=== PATIENT | female | born 1955 | race Caucasian/White ===

== ENCOUNTER 2019-01-21 08:10 | Outpatient (REF) | payer OTHER, SELFPAY ==
[2019-01-21 21:53] LABS: Anion Gap 8.6 mmol/L (3-11); BUN 25 mg/dL (7-18); CO2 29.4 mmol/L (21.0-32.0); CREATININE 0.97 mg/dL (0.55-1.02); Calcium 8.6 mg/dL (8.5-10.1); Calculated LDL 129; Chloride 105 mmol/L (98-107); Cholesterol 202 mg/dL (50-200); Estimated GFR 58.19 (mL/min/1.73m2); Glucose 102 mg/dL (70-100); HDL Cholesterol 51 mg/dL (40-60); Potassium 4.3 mmol/L (3.5-5.1); Sodium 143 mmol/L (136-145); Triglyceride 112 mg/dL (30-150)
== END 2019-01-21 08:30 ==
LOC: NCHCN 08:10
PROVIDERS: Visit Provider Family Medicine
DX: Z00.00 Encounter for general adult medical examination without abnormal findings (principal); I10 Essential (primary) hypertension
CPT/HCPCS: 80048; 80061; 83721

== ENCOUNTER 2019-09-29 12:24 | Outpatient (REF) | payer OTHER, SELFPAY ==
[2019-09-29 21:56] LABS: ALT 22 U/L (14-59); Calculated LDL 55 mg/dL (<100); Cholesterol 144 mg/dL (<200); HDL Cholesterol 31 mg/dL (40-60); Triglyceride 292 mg/dL (<150)
== END 2019-09-29 12:44 ==
LOC: NCHCN 12:24
PROVIDERS: Visit Provider Family Medicine
DX: I77.810 Thoracic aortic ectasia (principal)
CPT/HCPCS: 80061; 84460

== ENCOUNTER 2020-01-20 12:33 | Outpatient (REF) | payer OTHER, SELFPAY ==
[2020-01-21 23:59] LABS: COVID-19 RT-PCR Result NEGATIVE (Negative)
== END 2020-01-20 12:53 ==
LOC: NCHCN 12:33
PROVIDERS: Visit Provider Family Medicine
DX: Z20.828 Contact with and (suspected) exposure to other viral communicable diseases (principal)
CPT/HCPCS: U0003

== ENCOUNTER 2020-06-29 14:12 | Outpatient (REF) | payer OTHER, SELFPAY ==
[2020-07-03 11:32] LABS: SARS-CoV-2 RNA Source Nasal/Nares
[2020-07-03 11:34] LABS: SARS-CoV-2 RNA Not Detected (NotDetected)
== END 2020-06-29 14:32 ==
LOC: NCHCN 14:12
PROVIDERS: Visit Provider Nurse Practitioner Family
DX: Z11.59 Encounter for screening for other viral diseases (principal)
CPT/HCPCS: U0003

== ENCOUNTER 2020-10-24 16:08 | Outpatient (REF) | payer OTHER, SELFPAY ==
[2020-10-24 22:12] LABS: Abs Immature Grans 0.08 10^3/uL (0.0-0.06); Absolute Basophil Count 0.04 10^3/uL (0.0-0.2); Absolute Eosinophil Count 0.06 10^3/uL (0.0-0.7); Absolute Lymphocyte Count 2.63 10^3/uL (1.2-3.4); Absolute Monocyte Count 0.54 10^3/uL (0.1-0.8); Absolute Neutrophil Count 5.38 10^3/uL (1.2-6.7); Basophils % 0.5; Eosinophils % 0.7; HCT 38.3 % (36.0-46.0); HGB 12.5 g/dL (11.2-15.7); Immature Grans % 0.9; Lymphocytes % 30.1; MCH 30.5 pg (27.0-33.0); MCHC 32.6 % (32.0-36.0); MCV 93.4 fL (80-95); MPV 11.1 fL (8.0-11.0); Monocytes % 6.2; Neutrophils % 61.6; Nucleated RBC 0 %; Platelet Count 308 10^3/uL (130-400); RDW-SD 44.9 fL; WBC 8.73 10^3/uL (4.4-10.8)
[2020-10-24 22:25] LABS: Hemoglobin A1C 6.3 % (<5.7)
[2020-10-24 22:45] LABS: BUN 22 mg/dL (7-18); CREATININE 0.9 mg/dL (0.55-1.02); Calcium 8.9 mg/dL (8.5-10.1); Calculated LDL 74 mg/dL (<100); Chloride 103 mmol/L (98-107); Cholesterol 172 mg/dL (<200); Glucose 119 mg/dL (74-106); HDL Cholesterol 77 mg/dL (40-60); Potassium 3.9 mmol/L (3.5-5.1); Sodium 142 mmol/L (136-145); TSH 1.54 uIU/mL (0.36-3.74); Triglyceride 107 mg/dL (<150)
== END 2020-10-24 16:09 | disposition home or self-care (01) ==
LOC: NCHCN 16:08
PROVIDERS: PCP Nurse Practitioner Family; Visit Provider Nurse Practitioner Family
DX: I10 Essential (primary) hypertension (principal); E78.5 Hyperlipidemia, unspecified; R53.83 Other fatigue; Z13.1 Encounter for screening for diabetes mellitus
CPT/HCPCS: 80048; 80061; 83036; 84443; 85025

== ENCOUNTER 2022-04-24 10:49 | Outpatient (REF) | payer OTHER, SELFPAY ==
[2022-04-24 15:58] LABS: Hemoglobin A1C 6.2 % (<5.7)
[2022-04-24 16:10] LABS: ALT 29 U/L (14-59); Anion Gap 10.4 mmol/L (3-11); BUN 26 mg/dL (7-18); CO2 27.6 mmol/L (21.0-32.0); Calcium 8.6 mg/dL (8.5-10.1); Calculated LDL 92 mg/dL (<100); Chloride 104 mmol/L (98-107); Cholesterol 174 mg/dL (<200); Estimated GFR 62.13 (mL/min/1.73m2); Glucose 106 mg/dL (74-106); HDL Cholesterol 59 mg/dL (40-60); Potassium 4.2 mmol/L (3.5-5.1); Sodium 142 mmol/L (136-145); Triglyceride 116 mg/dL (<150)
== END 2022-04-24 10:50 | disposition home or self-care (01) ==
LOC: NCHCN 10:49
PROVIDERS: PCP Nurse Practitioner Family; Visit Provider Family Medicine
DX: I10 Essential (primary) hypertension (principal); R73.03 Prediabetes; E78.5 Hyperlipidemia, unspecified
CPT/HCPCS: 80048; 80061; 83036; 84460

== ENCOUNTER 2023-04-16 14:41 | Outpatient (REF) | payer MEDICARE, SELFPAY ==
[2023-04-16 22:17] LABS: BUN 27 mg/dL (7-18); Calcium 9.1 mg/dL (8.5-10.1); Calculated LDL 77 mg/dL (<100); Chloride 104 mmol/L (98-107); Cholesterol 181 mg/dL (<200); Estimated GFR 61.75 (mL/min/1.73m2); Glucose 135 mg/dL (74-106); HDL Cholesterol 73 mg/dL (40-60); Potassium 3.5 mmol/L (3.5-5.1); Sodium 139 mmol/L (136-145); Triglyceride 157 mg/dL (<150)
[2023-04-16 22:32] LABS: Hemoglobin A1C 5.9 % (<5.7)
== END 2023-04-16 14:42 | disposition home or self-care (01) ==
LOC: NCHCN 14:41
PROVIDERS: PCP Nurse Practitioner Family; Visit Provider Family Medicine
DX: I10 Essential (primary) hypertension (principal); R73.03 Prediabetes; E78.1 Pure hyperglyceridemia
CPT/HCPCS: 80048; 80061; 83036

== ENCOUNTER 2024-03-15 11:27 | Outpatient (REF) | payer MEDICARE, SELFPAY ==
--- OUTSIDE RECORDS SUMMARY | 2024-03-15 11:35 | XMS_ITS ---
Author Organization Unknown Address [address] [place] [phone] Phone Care Team Providers Care Bobcat Driver/Labor Name Role Phone JEAN CLAUDE Lomeli Attending Unavailable NORMAN Duke Primary Unavailable Social History Type Status Start Date End Date Code Code Syst em Smoking History Never smoker (Never Smoked) 421794481 SNOMED CT Sex Female Medications Medication Start Date End Date Route Frequency Dose Code Code System Medication Instructions Home Meds UNKNOWN MEDICATIONS 12/13/2018 Unknown ORAL DAILY 1 RxNorm TAKE 1 ORAL DAILY Hospital Discharge Instructions Should you have any questions prior to discharge, please contact a member of your healthcare team. If you have left the hospital and have any questions, please contact your primary care physician. Reason For Referral No Data Found Allergies and Adverse Reactions Allergy Substance Reaction Severity Start Date Concern Status Code Code System AMLODIPINE Moderate Active 33122 RxNorm AUGMENTIN Diarrhea (SNOMED-CT: 05706777), Dizziness (SNOMED-CT: 862626022), Vomiting (SNOMED-CT: 370201940) Active 878826 RxNorm Plan of Treatment MM SCREEN BILAT 05/31/2022 Encounters Encounter Diagnosis Start Date Code Code Sys tem Pain in upper limb 01/16/2022 076568511 SNOMED-CT Personal Care Team Section Performer Name Performer Role Active Date Inactive Da te
--- OUTSIDE RECORDS SUMMARY | 2024-03-15 11:35 | XMS_ITS ---
Author Organization Unknown Address [address] [place] [address] [phone] Phone Care Team Providers Care Manager Environmental Services Name Role Phone ROOMET DAVID Attending Unavailable Social History Type Status Start Date End Date Code Code Syst em Smoking History Never smoker (Never Smoked) 242996163 SNOMED CT Sex Female Medications Medication Start [...] Status Code Code System AMLODIPINE Moderate Active 15600 RxNorm AUGMENTIN Diarrhea (SNOMED-CT: 44533474), Dizziness (SNOMED-CT: 960231503), Vomiting (SNOMED-CT: 467070412) Active 103411 RxNorm Plan of Treatment MM SCREEN BILAT 05/31/2022 Encounters Encounter Diagnosis Start Date Code Code Sys tem Pain in right forearm 01/01/2022 SNOMED -CT Personal Care Team Section Performer Name Performer Role Active Date Inactive Da te
--- OUTSIDE RECORDS SUMMARY | 2024-03-15 11:36 | XMS_ITS ---
Author Organization Unknown Address [address] [place] [address] [phone] Phone Care Team Providers Care Restoration Ecologist Name Role Phone NORMAN Duek Attending Unavailable Results MM SCREENING BILAT MAMMO W T PJ Antonia CAD - Completed: 05/31/2022 09:18 LOINC: RADIOLOGY [place], [place] [address] PACS FOOD SERVICE REPORT Patient Name: JENNIFER GARDNER MRN: Sex: : Age: [id number] F [id number] Account: Accession: Admit: StayType: [id number] 05/31/2022 O/P Ordered: Order ID: Submitted: Ordering Provider: 05/31/2022 08:46 [id number] [facility] RODDY [place] Completed: Technologist: Resulted: 05/31/2022 09:18 DA 05/31/2022 09:22 Study Description: MM SCREENING BILAT MAMMO W TIA W CAD Reason For Study: SCREENING FINDINGS Exam was performed with 2D and tomosynthesis and was interpreted with CAD lesion detection performed. The breasts are of moderate density with fairly symmetrical distribution of fibroglandular tissue. No dominant mass or clumped microcalcification is identified in either breast. The current examination is compared with previous examinations including August 2019, multiple areas of nodularity seen bilaterally appears stable. No new abnormality seen. IMPRESSION [No specific evidence of malignancy at this time. Routine screening examinations are suggested at yearly intervals in this age group according to the ACS ACR guidelines.] [BI-RADS Category 1: Negative] [BI_RADS Density Category B: Scattered areas of fibroglandular density] Report Digitally Signed by Az Ruiz on 05/31/2022 09:22 AM EDT Social History Type Status Start Date End Date Code Code Syst em Smoking History Never smoker (Never Smoked) 782125706 SNOMED CT Sex Female Medications Medication Start [...] Status Code Code System AMLODIPINE Moderate Active 33684 RxNorm AUGMENTIN Diarrhea (SNOMED-CT: 62928244), Dizziness (SNOMED-CT: 066442085), Vomiting (SNOMED-CT: 521794663) Active 197787 RxNorm Plan of Treatment MM SCREEN BILAT 05/31/2022 Encounters Encounter Diagnosis Start Date Code Code Sys tem Encounter for screening mamm ogram for malignant neoplasm of breast 05/31/2022 SNOMED-CT Personal Care Team Section Performer Name Performer Role Active Date Inactive Da te
--- OUTSIDE RECORDS SUMMARY | 2024-03-15 11:36 | XMS_ITS | Clinical Summary ---
Author Organization [facility] [place] [address] Care Team Providers Care Unit Secy Name Role Phone Unknown Primary Care Provider Unavailabl e Social History Tobacco Use Types Packs/Day Years Used Date Smoking Tobacco: Never Assessed Sex and Gender Information Value Date Recorded Sex Assigned at Not on file Gender Identity Not on file Sexual Orientation Not on file Plan of Treatment Health Maintenance Due Date Last Done Comments CT Colonography 1955 Colonoscopy 1955 Colorectal Cancer Screening 1955 FIT DNA 1955 FIT 1955 Sigmoidoscopy (10 year) with FIT yearly 1955 Sigmoidoscopy 1955 Hepatitis C Screening 02/25/1974 Tdap adult 02/25/1975 Tetanus vaccine 02/25/1975 Breast Cancer Share Decision Needed 1996 Breast Cancer screening 1996 Zoster vaccine (1 of 2) 02/25/2006 Advance Directive 02/25/2011 Bone Density Scan 02/25/2021 Pneumoccocal Vaccine: 65+ (1 of 1 - PCV) 02/25/2021 Covid-19 Vaccine (1 - 2022-24 season) 2023 Influenza (Flu) vaccine (1 o f 1 - Influenza standard series) 04/11/2024 Care Teams Unit Secy Relationship Specialty Start Date End Date Unknown None PCP - General 07/22/18
--- OUTSIDE RECORDS SUMMARY | 2024-03-15 11:36 | XMS_ITS | Encounter Summary ---
Author Organization [facility] Address [facility] [place] [address] Care Team Providers Care Pharmacy Sales Representative Name Role Phone Unknown Primary Care Provider Unavailabl e Encounter Details Date Type Department Care Team (Latest Contact Info) Description 06/29/2020 11:18 PM EST - 06/29/2020 11:59 PM EST Hospital En[place] [phone] Discharge Disposition: Home Social History Tobacco Use Types Packs/Day Years Used Date Smoking Tobacco: Never Assessed Sex and Gender Information Value Date Recorded Sex Assigned at Not on file Gender Identity Not on file Sexual Orientation Not on file documented as of this encounter Plan of Treatment Not on file documented as of this encounter Procedures Procedure Name Priority Date/Time Associated Diagnosis Comments COVID-19 PCR Routine 06/29/2020 2:00 PM EST documented in this encounter Results * COVID-19 PCR (06/29/2020 2:00 PM EST) SARS-CoV-2 RNA Not Detected Not Detected [facility] Comment: This result should be interpreted in combination with the clinical observations, patient history and epidemiological information in making a final diagnosis. For testing of asymptomatic individuals, assay performance characteristics and clinical utility have not been evaluated. Testing for SARS-CoV-2 (Severe acute respiratory syndrome coronavirus 2, formerly known as 2019 novel coronavirus or 2019-nCoV) to aid in the diagnosis of COVID-19 is performed using the [employer] m SARS-CoV-2 Assay as authorized by the FDA Emergency Use Authorization (EUA). This EUA assay is intended for In-vitro Diagnostic (IVD) use with respiratory specimens such as nasopharyngeal swabs collected from individuals during the acute phase of infection. This assay is performed based on the instructions for use provided by [employer] and additional guidance provided by CDC and FDA. Testing is performed in the [facility] within the Department of Pathology and Laboratory Medicine at [facility], certified under the Clinical Laboratory Improvement Amendments of 1988 (CLIA), 42 U.S.C. 263a, to perform high complexity tests. Assay performance has been verified according to clinical laboratory regulatory requirements for use with specimens collected from individuals suspected of COVID-19. Test results are provided above. A result of ? Not Detected? indicates that the viral RNA target is not present above the limit of detection, but does not preclude SARS-CoV-2 infection. False negative results may occur if a specimen is improperly collected, transported or handled; if amplification inhibitors are present; or if inadequate numbers of viral particles are present in the specimen. When a diagnostic test is negative, the possibility of a false negative result should be considered in the context of a patient? s recent exposures and the presence of clinical signs and symptoms consistent with COVID-19. A result of ? Detected? indicates that RNA from SARS-CoV-2 was detected and the patient is infected. As required or requested by public health authorities, positive specimens may be sent for additional testing. Positive and negative predictive values for this test are highly dependent on disease prevalence. A result of ? Invalid? indicates that neither the viral RNA targets nor the internal control target was detected. An invalid result suggests the presence of inhibitors. Recollection and re-testing is recommended in the case of an invalid result. CDC COVID-19 criteria for testing on human specimens and clinical management guidance information are available at the CDC Coronavirus Disease 2019 (COVID-19) webpage under ? Information for Healthcare Professionals? (https://www.cdc.gov/coronavirus/2019-ncov/hcp/index.html) Additional information about this and other EUA tests can be found in provider and patient fact sheets at the following FDA website: https://www.fda.gov/medical-devices/styydqbevzt-ygwfzof-6645-ozrue-62-dxrdjoooz- use-a jpeguhsztbpky-kbfivna-fzbuphw/tcwnc-hjudzwzcqft-zvkx SARS-CoV-2 RNA Source Nasal [facility] Specimen from nose (specimen) Other / Unknown 06/29/2020 2:00 PM EST 07/01/2020 3:47 AM EST Narrative Resulting Agency Comment Spec In Lab Rukhsana Thomas Tari CONTINUITY READER MOLECULAR ORDERABLE S Performing Organization Address City/State/[facility] Co de Phone Number [facility] [place] [address] documented in this encounter Visit Diagnoses Not on filedocumented in this encounter Care Teams Pharmacy Sales Representative Relationship Specialty Start Date End Date Unknown None PCP - General 07/22/18 documented as of this encounter
--- OUTSIDE RECORDS SUMMARY | 2024-03-15 11:36 | XMS_ITS ---
Author Organization Unknown Address [address] [place] [address] [phone] Phone Care Team Providers Care Church History Professor Name Role Phone FROY Knight Attending Unavailable NORMAN Duke Primary Unavailable Social History Type Status Start Date End Date Code Code Syst em Smoking History Never smoker (Never Smoked) 135870298 SNOMED CT Sex Female Medications Medication Start [...] Status Code Code System AMLODIPINE Moderate Active 82255 RxNorm AUGMENTIN Diarrhea (SNOMED-CT: 79095406), Dizziness (SNOMED-CT: 394817120), Vomiting (SNOMED-CT: 767796804) Active 632707 RxNorm Plan of Treatment MM SCREEN BILAT 05/31/2022 Encounters Encounter Diagnosis Start Date Code Code Sys tem Essential hypertension 06/05/2023 77387110 SNOME D-CT Personal Care Team Section Performer Name Performer Role Active Date Inactive Da te
--- OUTSIDE RECORDS SUMMARY | 2024-03-15 11:36 | XMS_ITS | Encounter Summary ---
Author Organization [facility] Address [address] [place] [address] Care Team Providers Care Personal Fitness Manager Name Role Phone Izzy Mars MD Primary Care Provider [phone] Encounter Details Date Type Department Care Team (Latest Contact Info) Description 07/15/2018 9:09 EST - 07/15/2018 11:59 [facility] Hospital Encounter [address] [address] Huy Dunham PA [address] [place] [address], [address] [place] [address] Discharge Disposition: Home or Self Care Social History Tobacco Use Types Packs/Day Years Used Date Smoking Tobacco: Former Sex and Gender Information Value Date Recorded Sex Assigned at Not on file Gender Identity Not on file Sexual Orientation Not on file documented as of this encounter Discharge Diagnoses Diagnosis D48.5 Neoplasm of uncertain behavior of skin-D48.5[ICD-10-CM] documented in this encounter Discharge Disposition Disposition Code Departure Means Destination Home or Self Care documented in this encounter Plan of Treatment Not on file documented as of this encounter Visit Diagnoses Not on filedocumented in this encounter Additional Health Concerns Infection Onset Date Last Indicated Resolved Time 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
--- OUTSIDE RECORDS SUMMARY | 2024-03-15 11:36 | XMS_ITS ---
Author Organization Unknown Address [address] [place] [address] [phone] Phone Care Team Providers Care Floor Associate Name Role Phone FROY Knight Attending Unavailable NORMAN Duke Primary Unavailable Social History Type Status Start Date End Date Code Code Syst em Smoking History Never smoker (Never Smoked) 958704202 SNOMED CT Sex Female Medications Medication Start [...] Status Code Code System AMLODIPINE Moderate Active 77428 RxNorm AUGMENTIN Diarrhea (SNOMED-CT: 27394386), Dizziness (SNOMED-CT: 505788059), Vomiting (SNOMED-CT: 737326981) Active 698495 RxNorm Plan of Treatment MM SCREEN BILAT 05/31/2022 Encounters Encounter Diagnosis Start Date Code Code Sys tem Thoracic aortic ectasia 05/24/2022 SNOM ED-CT Personal Care Team Section Performer Name Performer Role Active Date Inactive Da te
--- OUTSIDE RECORDS SUMMARY | 2024-03-15 11:36 | XMS_ITS ---
Author Organization Unknown Address [address] [place] [phone] Phone Care Team Providers Care Wheel Cutter Name Role Phone FROY Knight Attending Unavailable NORMAN Duke Primary Unavailable Social History Type Status Start Date End Date Code Code Syst em Smoking History Never smoker (Never Smoked) 576340095 SNOMED CT Sex Female Medications Medication Start [...] Status Code Code System AMLODIPINE Moderate Active 23099 RxNorm AUGMENTIN Diarrhea (SNOMED-CT: 84512357), Dizziness (SNOMED-CT: 705610689), Vomiting (SNOMED-CT: 677848655) Active 293286 RxNorm Plan of Treatment MM SCREEN BILAT 05/31/2022 Encounters Encounter Diagnosis Start Date Code Code Sys tem Aortic aneurysm of unspecified site, without rupture 0 04/26/2022 SNOMED-CT Personal Care Team Section Performer Name Performer Role Active Date Inactive Da te
--- OUTSIDE RECORDS SUMMARY | 2024-03-15 11:36 | XMS_ITS | Clinical Summary ---
Author Organization [facility] Address [address] [place] [address] Care Team Providers Care Piano Machine Operator Name Role Phone Izzy Mars MD Primary Care Provider Medications No known medications Social History Tobacco Use Types Packs/Day Years Used Date Smoking Tobacco: Former Interpersonal Safety Answer Date Record ed Physically Hurt Never 03/12/2020 Verbally Threaten Not on file 03/12/2020 Sex and Gender Information Value Date Recorded Sex Assigned at Not on file Gender Identity Not on file Sexual Orientation Not on file Obstetrics History Last Filed Vital Signs Vital Sign Reading Time Taken Comments Blood Pressure 132/72 07/11/2015 0833 EST Pulse 74 07/11/2015 0833 EST Temperature - - Respiratory Rate - - Oxygen Saturation - - Inhaled Oxygen Concentration - - Weight 76.7 kg (169 lb) 07/11/2015 0833 EST Height 154.9 cm (5' 0.98) 07/11/2015 0833 EST Body Mass Index 31.95 07/11/2015 0833 EST Plan of Treatment Health Maintenance Due Date Last Done Comments Hepatitis C Screen 1955 RSV Immunization ( o r 60+ Years) (1 - 1-dose 60+ series) 2016 Fall Risk Screening 02/25/2021 COVID-19 Vaccine (2022- season) 2023 Additional Health Concerns Infection Onset Date Last Indicated 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
--- OUTSIDE RECORDS SUMMARY | 2024-03-15 11:36 | XMS_ITS | Encounter Summary ---
Author Organization [facility] Address [address] [place] [address] Care Team Providers Care Surgery Consultant Name Role Phone Izzy Austin MD Primary Care Provider [phone] Encounter Details Date Type Department Care Team (Late st Contact Info) Description 07/15/2018 Results Only [facility] [phone] Vivian Dunham PA [address] [place] [address], [facility] [address] [place], [place] [phone] Social History Tobacco Use Types Packs/Day Years Used Date Smoking Tobacco: Former Sex and Gender Information Value Date Recorded Sex Assigned at Not on file Gender Identity Not on file Sexual Orientation Not on file documented as of this encounter Plan of Treatment Not on file documented as of this encounter Procedures Procedure Name Priority Date/Time Associated Diagnosis Comments SURGICAL PATHOLOGY Routine 07/15/2018 21 :13 EST documented in this encounter Results * SURGICAL PATHOLOGY (07/15/2018 21:13 EST) Pathology Report: SURGICAL PATHOLOGY REPORT Reports generated via electronic interface contain original data; however they are lacking the format of the original report. Caution should be taken when reading/interpret ing unformatted reports. Name: ? JENNIFER GARDNER ? Accession #: ? [id number] ? : ? 1955 (Age: 63) ??F ? Collect Date: ? 07/15/2018 ? Location: ? [facility] ? Receive Date: ? 07/15/2018 ? Provider: VIVIAN MARSH Copy to: IZZY AUSTIN MD ? Final Pathologic Diagnosis: SKIN OF ARM, LEFT UPPER, SHAVE BIOPSY: - Actinic keratosis, pigmented. ?? Document reviewed and electronically signed by: LEE ANN KAPLAN MD Report ??Date: 07/17/2018 13:22 By the signature above, the attending physician certifies that he/she has personally conducted a gross and/or microscopic examination of the described specimens and rendered or confirmed the above diagnosis. Specimen(s) Received: Left upper arm shave biopsy Clinical History: 3.0 mm pink keratotic papule, DDx: Actinic keratosis vs squamous cell carcinoma, please check margins; clinical diagnosis code: ??D48.5 Gross Description: ? Received in formalin labelled with proper patient identification (initials D, D) and left upper arm is a shave biopsy of walters-pink to focally brown mottled skin (0.6 x 0.5 x 0.2 cm). The specimen is inked, bisected and submitted in 1. 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
--- OUTSIDE RECORDS SUMMARY | 2024-03-15 11:36 | XMS_ITS | Encounter Summary ---
Author Organization [facility] Address [address] [place] [address] Care Team Providers Care Retail Support Specialist Name Role Phone Izzy Mars MD Primary Care Provider [phone] Encounter Details Date Type Department Care Team (Late st Contact Info) Description 11/26/2019 Lab Requisition [facility] Pathology & Laboratory Medicine - [facility] [address] [place] [address] Unknown, Provider, Social History Tobacco Use Types Packs/Day Years Used Date Smoking Tobacco: Former Sex and Gender Information Value Date Recorded Sex Assigned at Not on file Gender Identity Not on file Sexual Orientation Not on file documented as of this encounter Plan of Treatment Not on file documented as of this encounter Procedures Procedure Name Priority Date/Time Associated Diagnosis Comments OVA/PARASITE EXAM Routine 11/26/2019 7:00 EDT documented in this encounter Results * OVA/PARASITE EXAM (11/26/2019 7:00 EDT) Parasite No ova and parasites seen. 11/29/2019 14:[address] [facility] Feces SPECIMEN FROM RECTUM / Unknown 11/26/2019 7:00 EDT 11/26/2019 22:00 EDT Narrative [facility] - 11/29/2019 14:35 EDT (If Cryptosporidium, Cyclospora, or Microsporidium are suspected, specific tests must be requested.) Single negative specimen does not rule out the possibility of a parasitic infection. Provider Unknown MICROBIOLOGY - GALA VELAZQUEZ ORDERABLES 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
--- OUTSIDE RECORDS SUMMARY | 2024-03-15 11:36 | XMS_ITS | Encounter Summary ---
Author Organization [facility] Address [address] [place] [address] Care Team Providers Care Employment Specialist Name Role Phone Izzy Mars MD Primary Care Provider [phone] Encounter Details Date Type Department Care Team (Late st Contact Info) Description 11/26/2019 Lab Requisition [facility] Pathology & Laboratory Medicine - [address] [address] Unknown, Provider, Social History Tobacco Use Types Packs/Day Years Used Date Smoking Tobacco: Former Sex and Gender Information Value Date Recorded Sex Assigned at Not on file Gender Identity Not on file Sexual Orientation Not on file documented as of this encounter Plan of Treatment Not on file documented as of this encounter Procedures Procedure Name Priority Date/Time Associated Diagnosis Comments FECAL BACTERIAL PATHOGENS BY PCR Routine 11/26/2019 7:00 EDT documented in this encounter Results * FECAL BACTERIAL PATHOGENS BY PCR (11/26/2019 7:00 EDT) Salmonella PCR Negative Negative 11/27/2019 10:16 EDT [facility] Shigella/Enteroin vasive E. coli Negative Negative 11/27/2019 10:16 EDT [facility] HN LAB CAMPYLOBACTER PCR Negative Negative 11/27/2019 10:16 EDT [facility] Shiga Toxin PCR Negative Negative 0 10:16 EDT [facility] Feces SPECIMEN FROM RECTUM / Unknown 11/26/2019 7:00 EDT 11/26/2019 22:00 EDT Provider Unknown MICROBIOLOGY - GALA VELAZQUEZ ORDERABLES [facility] [address] [place] [address] documented in this encounter Visit Diagnoses Not on filedocumented in this encounter Additional Health Concerns Infection Onset Date Last Indicated Resolved Time MDR-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
--- OUTSIDE RECORDS SUMMARY | 2024-03-15 11:36 | XMS_ITS | Encounter Summary ---
Author Organization [facility] Address [address] [place] [address] Care Team Providers Care Electronic Engraver Name Role Phone Izzy Mars MD Primary Care Provider [phone] Encounter Details Date Type Department Care Team (Latest Contact Info) Description 07/19/2015 10:57 EST - 07/19/2015 10:58 [facility] Hospital Encounter [address] [address] Huy Dunham PA [address] [place] [address], [address] [place] [address] Discharge Disposition: Home or Self Care Social History Tobacco Use Types Packs/Day Years Used Date Smoking Tobacco: Former Sex and Gender Information Value Date Recorded Sex Assigned at Not on file Gender Identity Not on file Sexual Orientation Not on file documented as of this encounter Discharge Diagnoses Diagnosis 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-C44.529[ICD-10-CM] documented in this encounter Discharge Disposition Disposition Code Departure Means Destination Home or Self Care documented in this encounter Plan of Treatment Not on file documented as of this encounter Visit Diagnoses Not on filedocumented in this encounter Additional Health Concerns Infection Onset Date Last Indicated Resolved Time 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
--- OUTSIDE RECORDS SUMMARY | 2024-03-15 11:36 | XMS_ITS | Encounter Summary ---
Author Organization [facility] Address [address] [place] [address] Care Team Providers Care Home Agent Name Role Phone Izzy Mars MD Primary Care Provider [phone] Encounter Details Date Type Department Care Team (Late st Contact Info) Description 11/26/[address] [facility] Pathology & Laboratory Medicine - [facility] [address] [place] [address] Unknown, Provider, Social History Tobacco Use Types Packs/Day Years Used Date Smoking Tobacco: Former Sex and Gender Information Value Date Recorded Sex Assigned at Not on file Gender Identity Not on file Sexual Orientation Not on file documented as of this encounter Plan of Treatment Not on file documented as of this encounter Procedures Procedure Name Priority Date/Time Associated Diagnosis Comments GIARDIA AND CRYPTOSPORIDIUM ANTIGENS Routine 11/26/2019 7:00 EDT documented in this encounter Results * GIARDIA AND CRYPTOSPORIDIUM ANTIGENS (11/26/2019 7:00 EDT) Giardia and Cryptosporidium Cryptosporidium Antigen Neg and Giardia Antigen Neg Cryptosporidium Antigen Neg and Giardia Antigen Neg 0 14:37 EDT [facility] Feces SPECIMEN FROM RECTUM / Unknown 11/26/2019 7:00 EDT 11/26/2019 22:00 EDT Provider Unknown MICROBIOLOGY - GENER AL ORDERABLES [facility] [address] [place] [address] documented in this encounter Visit Diagnoses Not on filedocumented in this encounter Additional Health Concerns Infection Onset Date Last Indicated Resolved Time MDR-GNR Comment: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
--- OUTSIDE RECORDS SUMMARY | 2024-03-15 11:36 | XMS_ITS | Referral Summary ---
Author Organization [facility] Address [address] [place] [address] Care Team Providers Care Car Wash Attendant Name Role Phone Izzy Mars MD Primary Care Provider [phone] Medications No known medications Social History Tobacco Use Types Packs/Day Years Used Date Smoking Tobacco: Former Interpersonal Safety Answer Date Record ed Physically Hurt Never 03/12/2020 Verbally Threaten Not on file 03/12/2020 Sex and Gender Information Value Date Recorded Sex Assigned at Not on file Gender Identity Not on file Sexual Orientation Not on file Last Filed Vital Signs Vital Sign Reading Time Taken Comments Blood Pressure 132/72 07/11/2015 0833 EST Pulse 74 07/11/2015 0833 EST Temperature - - Respiratory Rate - - Oxygen Saturation - - Inhaled Oxygen Concentration - - Weight 76.7 kg (169 lb) 07/11/2015 0833 EST Height 154.9 cm (5' 0.98) 07/11/2015 0833 EST Body Mass Index 31.95 07/11/2015 0833 EST Plan of Treatment Not on file Additional Health Concerns Infection Onset Date Last Indicated MDR-GNR Comment: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
--- OUTSIDE RECORDS SUMMARY | 2024-03-15 11:36 | XMS_ITS | Encounter Summary ---
Author Organization [facility] Address [address] [place] [address] Care Team Providers Care It Systems Manager Name Role Phone Izzy Mars MD Primary Care Provider [phone] Encounter Details Date Type Department Care Team (Late st Contact Info) Description 01/20/2020 Lab Requisition [facility] Pathology & Laboratory Medicine - [facility] [address] [place] [address] Outr Resulting Lab, Provider Social History Tobacco Use Types Packs/Day Years Used Date Smoking Tobacco: Former Sex and Gender Information Value Date Recorded Sex Assigned at Not on file Gender Identity Not on file Sexual Orientation Not on file documented as of this encounter Plan of Treatment Not on file documented as of this encounter Procedures Procedure Name Priority Date/Time Associated Diagnosis Comments DO NOT ORDER STANDALONE - BROAD COVID TEST Today 01/20/2020 9:45 EDT COVID-19 TESTING Routine 01/20/2020 9:45 EDT documented in this encounter Results * DO NOT ORDER STANDALONE - BROAD COVID TEST (01/20/2020 9:45 EDT) COVID-19 rt-PCR Result NEGATIVE Negative 01/21/2020 19:[address] [facility] Comment: 2019-novel Coronavirus (2019-nCoV) not detected by the qRT-PCR assay. Consider testing for other respiratory viruses or re-collecting for 2019-nCoV testing. Note: Optimum timing for peak viral levels during infections caused by 2019-nCoV have not been determined. Collection of multiple specimens from the same patient may be necessary to detect the virus. Limitations Positive results are indicative of active infection with SARS-CoV-2 but do not rule out bacterial infection or co-infection with other viruses. The agent detected may not be the definite cause of disease. In addition, detection of viral RNA may not indicate the presence of infectious virus or that SARS-CoV-2 is the causative agent for clinical symptoms. Negative results do not preclude SARS-CoV-2 infection and should not be used as the sole basis for patient management decisions. Negative results must be combined with clinical observations, patient history, and epidemiological information. False negative results may also occur if amplification inhibitors are present in the specimen or if inadequate numbers of organisms are present in the specimen. Optimum specimen types and timing for peak viral levels during infections caused by SARS-CoV-2 have not been fully determined. Collection of multiple specimens (types and time points) from the same patient may be necessary to detect the virus. The test was validated for use with upper respiratory specimens obtained via nasopharyngeal or oropharyngeal swabs in VTM, UTM, M4, M5, M6, saline, and MTM media. The performance of this test has not been established for other specimens. Specimens collected using other FDA recommended Specimen Collection Materials listed in the FDA COVID-19 Diagnostic [employer] communication (November 04, 2019) are processed with the caveat that they were not all validated for use with this test and the result must be interpreted in this context. Furthermore, a false negative results may occur if a specimen is improperly collected, transported or handled. If the virus mutates in the RT-PCR target region, SARS-CoV-2 may not be detected or may be detected less predictably. Inhibitors or other types of interference may produce a false negative result. An interference study evaluating the effect of common cold medications was not performed. This test is not FDA-cleared but its performance characteristics were established by our CLIA-certified, CAP-accredited, high complexity laboratory in accordance with CLIA regulations, [employer] [place] (CAP) guidelines (Oct 28, 2019), and FDA guidance (Oct 09, 2019). This test is only for use under the Food and Drug Administration's Emergency Use Authorization. Swab ENTIRE NASOPHARYNX / Unknown 01/20/2020 9:45 EDT 01/20/2020 16:00 EDT Provider Outr Resulting Lab MICROBIOLOGY - GENERAL ORDERABLES [facility] [place], [place] * COVID-19 TESTING (01/20/2020 9:45 EDT) COVID-19 rt-PCR Result NEGATIVE Negative 01/21/2020 23:54 EDT [facility] Comment: 2019-novel Coronavirus (2019-nCoV) not detected by the qRT-PCR assay. Consider testing for other respiratory viruses or re-collecting for 2019-nCoV testing. Note: Optimum timing for peak viral levels during infections caused by 2019-nCoV have not been determined. Collection of multiple specimens from the same patient may be necessary to detect the virus. Limitations Positive results are indicative of active infection with SARS-CoV-2 but do not rule out bacterial infection or co-infection with other viruses. The agent detected may not be the definite cause of disease. In addition, detection of viral RNA may not indicate the presence of infectious virus or that SARS-CoV-2 is the causative agent for clinical symptoms. Negative results do not preclude SARS-CoV-2 infection and should not be used as the sole basis for patient management decisions. Negative results must be combined with clinical observations, patient history, and epidemiological information. False negative results may also occur if amplification inhibitors are present in the specimen or if inadequate numbers of organisms are present in the specimen. Optimum specimen types and timing for peak viral levels during infections caused by SARS-CoV-2 have not been fully determined. Collection of multiple specimens (types and time points) from the same patient may be necessary to detect the virus. The test was validated for use with upper respiratory specimens obtained via nasopharyngeal or oropharyngeal swabs in VTM, UTM, M4, M5, M6, saline, and MTM media. The performance of this test has not been established for other specimens. Specimens collected using other FDA recommended Specimen Collection Materials listed in the FDA COVID-19 [employer] communication (November 04, 2019) are processed with the caveat that they were not all validated for use with this test and the result must be interpreted in this context. Furthermore, a false negative results may occur if a specimen is improperly collected, transported or handled. If the virus mutates in the RT-PCR target region, SARS-CoV-2 may not be detected or may be detected less predictably. Inhibitors or other types of interference may produce a false negative result. An interference study evaluating the effect of common cold medications was not performed. This test is not FDA-cleared but its performance characteristics were established by our CLIA-certified, CAP-accredited, high complexity laboratory in accordance with CLIA regulations, [employer] [place] (CAP) guidelines (Oct 28, 2019), and FDA guidance (Oct 09, 2019). This test is only for use under the Food and Drug Administration's Emergency Use Authorization. 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
--- OUTSIDE RECORDS SUMMARY | 2024-03-15 11:37 | XMS_ITS | Encounter Summary ---
Author Organization [facility] Address [address] [place] [address] Care Team Providers Care Dance Master Name Role Phone Izzy Austin MD Primary Care Provider [phone] Encounter Details Date Type Department Care Team (Late st Contact Info) Description 07/19/2015 Results Only [facility] [phone] Vivian Dunham PA [address] [place] [address], [facility] [address] [place], [place] [id number] Social History Tobacco Use Types Packs/Day Years Used Date Smoking Tobacco: Former Sex and Gender Information Value Date Recorded Sex Assigned at Not on file Gender Identity Not on file Sexual Orientation Not on file documented as of this encounter Plan of Treatment Not on file documented as of this encounter Procedures Procedure Name Priority Date/Time Associated Diagnosis Comments SURGICAL PATHOLOGY Routine 07/19/2015 18 :51 EST documented in this encounter Results * SURGICAL PATHOLOGY (07/19/2015 18:51 EST) Pathology Report: SURGICAL PATHOLOGY REPORT Reports generated via electronic interface contain original data; however they are lacking the format of the original report. Caution should be taken when reading/interpret ing unformatted reports. Name: ? JENNIFER GARDNER ? Accession #: ? [id number] ? : ? 1955 (Age: 60) ??F ? Collect Date: ? 07/19/2015 ? Location: ? [facility] ? Receive Date: ? 07/19/2015 ? Provider: VIVIAN MARSH Copy to: IZZY AUSTIN MD ? Final Pathologic Diagnosis: SKIN OF CHEST, RIGHT LATERAL SUPERIOR, EXCISION: - Epidermal reparative change and dermal scar. - No residual squamous cell carcinoma identified. Document reviewed and electronically signed by: EDITH CASTANEDA MD Report ??Date: 07/21/2015 14:49 By the signature above, the attending physician certifies that he/she has personally conducted a gross and/or microscopic examination of the described specimens and rendered or confirmed the above diagnosis. Specimen(s) Received: Right lateral superior chest Clinical History: [place] patch with scale, status post biopsy and well-healed, pink scar (s/p biopsy), DDx: Squamous cell carcinoma, please check margins; C44.529 Gross Description: ? Received in formalin labelled with proper patient identification (initials D, D) and right lateral superior chest is an unoriented elliptical excision of walters-brown skin (3.4 x 1.3 cm and is excised to a depth of 0.3 cm). There is a central pink-walters healing lesion that measures 0.8 x 0.5 cm. The margins are inked blue. The specimen is serially sectioned and entirely submitted as 1-3 central sections and 4 tips, reverse en face. 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
--- OUTSIDE RECORDS SUMMARY | 2024-03-15 11:37 | XMS_ITS | Encounter Summary ---
Author Organization [facility] Address [address] [place] [address] Care Team Providers Care Auto Parker Name Role Phone Izzy Mars MD Primary Care Provider [phone] Reason for Visit * Reason Comments Other frequent UTI, ?bladd er spasm, ? IC Encounter Details Date Type Department Care Team (Latest Contact Info) Description 06/26/2015 13:00 EST Office Visit [facility] - Medical Office Building [facility] [address] [place] [id number] Shaista Orr MD [address] [facility] Medical Office [facility], [address] [address] Dysuria (Primary Dx) Discharge Disposition: Auto Discharge Social History Tobacco Use Types Packs/Day Years Used Date Smoking Tobacco: Former Sex and Gender Information Value Date Recorded Sex Assigned at Not on file Gender Identity Not on file Sexual Orientation Not on file documented as of this encounter Last Filed Vital Signs Vital Sign Reading Time Taken Comments Blood Pressure 139/103 06/26/2015 1300 EST Pulse 98 06/26/2015 1300 EST Temperature - - Respiratory Rate - - Oxygen Saturation - - Inhaled Oxygen Concentration - - Weight 76.7 kg (169 lb 3.2 oz) 06/26/[address] Height 154.9 cm (5' 1) 06/26/2015 1300 EST Body Mass Index 31.97 06/26/2015 1300 EST documented in this encounter Discharge Diagnoses Diagnosis R30.0 Dysuria-R30.0[ICD-10-CM] documented in this encounter Ordered Prescriptions Prescription Sig Dispensed Refills Start Date End Da te ciprofloxacin HCl (CIPRO) 250 mg tablet Take 1 Tab by mouth every 12 hours for 5 days 14 Tab 0 06/26/2015 06/29/2015 documented in this encounter Discharge Disposition Disposition Code Departure Means Destination Auto Discharge documented in this encounter Progress Notes * Shaista Orr MD - 06/26/2015 1309 EST [facility] FEMALE EXAMINATION Patient: Shaista Newman is an 60 y.o. female seen for consultation at the request of Izzy Mars MD for Other. HPI 60 yo P2 with sudden onset of urinary frequency, dysuria initially treated with Bactrim, then Ciprowith minimal improvement 6 wks ago. Has been taking Pyridium around the clock. ROS Pelvic pain: No Dyspareunia: No Recurrent UTI: Yes Hematuria: No A review of the patient's medical, social, and family history along with medications and allergies was performed. OB History No data available No past medical history on file. No past surgical history on file. No family history on file. History Social History ??? Marital Status: Spouse Name: N/A Number of Children: N/A ??? Years of Education: N/A Social History Main Topics ??? Smoking status: Former Smoker ??? Smokeless tobacco: Not on file ??? Alcohol Use: Not on file ??? Drug Use: Not on file ??? Sexual Activity: Not on file Other Topics Concern ??? Not on file Social History Narrative ??? No narrative on file No current outpatient prescriptions on file. No current facility-administered medications for this visit. Not on File A 15 point Review of Systems was performed. Positives related to the patient???s complaint are listed below; all others are either negative or documented in the patient???s scanned Review of Systems. PELVIC EXAM External Genitalia: Normal Vaginal Examination: Vaginal atrophy moderate Cervix absent Uterus: absent Pelvic Floor Relaxation: absent Adnexa: Normal Urethra Normal Bladder Normal Rectal prolapse: Absent Rectal hemorrhoids: Absent Perineum Normal Vitals BP 139/103 mmHg Pulse 98 Ht 154.9 cm (61) Wt 76.749 kg (169 lb 3.2 oz) BMI 31.99 kg/m2 General Physical Exam Constitutional/General: Oriented to person, place, and time. Appears well- developed and well-nourished. HEENT: Head: normocephalic and atraumatic Eyes: conjunctivae and EOM normal Nose: nose normal Throat/mouth: oropharynx clear and moist Neck: normal range of motion Pulmonary: effort normal Abdomen: abdomen soft Musculoskeletal: normal range of motion Skin: warm and dry Neuro/Psych: alert and oriented to person, place, and time Labs Assessment Shaista Newman is a 60 y.o., female with dysuria and bladder urgency. Plan Urine culture Rx Cipro x 5 days F/U after cipro to re evaluate, for possible ureoplasm Shaista Orr MD documented in this encounter Plan of Treatment Not on file documented as of this encounter Procedures Procedure Name Priority Date/Time Associated Diagnosis Comments POCT URINE DIPSTICK, CLINITEK Routine 06/26/2015 13:18 EST Dysuria documented in this encounter Results * (ABNORMAL) POCT URINE DIPSTICK (06/26/2015 13:18 EST) Color YELLOW 06/26/2015 13:23 [facility] Clarity, UA SLIGHTLY CLOUDY 06/26/2015 13:23 [facility] Glucose Neg Neg 06/26/2015 13:23 [facility] Bilirubin Neg Neg 06/26/2015 13:23 [facility] Ketones Neg Neg 06/26/2015 13:23 [facility] Specific [place] 1.015 1.001 - 1.035 06/26/2015 13:23 [facility] Blood Neg Neg 06/26/2015 13:23 [facility] pH 7.0 4.6 - 8.0 06/26/2015 13:23 [facility] Protein Neg Neg 06/26/2015 13:23 [facility] Urobilinogen 0.2 0.2 - 1.0 E.U./dl 06/26/2015 13:23 [facility] Nitrite Pos(A) Neg 06/26/2015 13:23 [facility] Leuk Esterase Neg Neg 06/26/2015 13:23 EST [facility] choir director ID [id number] 06/26/2015 13:23 EST [facility] Comment:Test performed at [facility] Urine specimen (specimen) URINE / Unknown 06/26/2015 13:18 EST 06/26/2015 13:23 EST Shaista Orr MD POINT OF CARE TE ST ORDERABLES Performing Organization Address City/State/[facility] Co de Phone Number [facility] [address] [place] [address] documented in this encounter Visit Diagnoses Diagnosis Dysuria- Primary documented in this encounter Care Teams Auto Parker Relationship Specialty Start Date End Date Izzy Mars MD [address] [place] [address] PCP - General 06/23/15 documented as of this encounter
--- OUTSIDE RECORDS SUMMARY | 2024-03-15 11:37 | XMS_ITS | Encounter Summary ---
Author Organization [facility] Address [address] [place] [address] Care Team Providers Care Facility Manager Name Role Phone Izzy Mars MD Primary Care Provider [phone] Reason for Visit * Reason Onset Date Comments Results 06/29/2015 Encounter Details Date Type Department Care Team (Late st Contact Info) Description 06/29/2015 Telephone [facility] SERVER ENGINEER Pelvic Medicine and Reconstructive Surgery - Medical Office [facility] [address] [place] [address] Rianna Vaz, RN Results Social History Tobacco Use Types Packs/Day Years Used Date Smoking Tobacco: Former Sex and Gender Information Value Date Recorded Sex Assigned at Not on file Gender Identity Not on file Sexual Orientation Not on file documented as of this encounter Ordered Prescriptions Prescription Sig Dispensed Refills Start Date End Da te nitrofurantoin, macrocrystal-monohydrate, (MACROBID) 100 mg capsule Take 1 Cap by mouth 2 times daily for 5 days 10 Cap 0 06/29/2015 07/04/2015 documented in this encounter Miscellaneous Notes * Telephone Encounter - Rianna Vaz RN - 06/29/2015 1149 EST The patient indicates understanding of these issues and agrees with the plan. Pt advised to push fluids and call if sx persist or worsen. * Telephone Encounter - Rianna Vaz RN - 06/29/2015 3296 EST Culture results came back with >100,000 E. Coli Resistant to Cipro, discussed with Dr. Orr, will change to Macrobid 100 mg po BID x 5 days. 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 [place] [phone] PCP - General 06/23/15 documented as of this encounter
--- OUTSIDE RECORDS SUMMARY | 2024-03-15 11:37 | XMS_ITS | Encounter Summary ---
Author Organization [facility] Address [address] [place] [address] Care Team Providers Care Railroad Carman Name Role Phone Unavailable Primary Care Provider Unavailabl e Encounter Details Date Type Department Care Team (Late st Contact Info) Description 02/08/2002 12:38 EDT Hospital Encounter [facility] [address] [place] [address] Reyes Petersen MD Social History Tobacco Use Types Packs/Day Years [...]
--- OUTSIDE RECORDS SUMMARY | 2024-03-15 11:37 | XMS_ITS ---
Author Organization Unknown Address [address] [place] [phone] Phone Care Team Providers Care Electrical Assembler Name Role Phone FROY Knight MD Attending Unavailable NORMAN PEREYRA Primary Unavailable Social History Type Status Start Date End Date Code Code Syst em Smoking History Never smoker (Never Smoked) 110585738 SNOMED CT Sex Female Medications Medication Start [...] Status Code Code System AMLODIPINE Moderate Active 02906 RxNorm AUGMENTIN Diarrhea (SNOMED-CT: 99406650), Dizziness (SNOMED-CT: 119756493), Vomiting (SNOMED-CT: 341108524) Active 877214 RxNorm Plan of Treatment MM SCREEN BILAT 05/31/2022 Encounters Encounter Diagnosis Start Date Code Code Sys tem Thoracic aortic ectasia 04/27/2021 SNOM ED-CT Personal Care Team Section Performer Name Performer Role Active Date Inactive Da te
--- OUTSIDE RECORDS SUMMARY | 2024-03-15 11:37 | XMS_ITS | Encounter Summary ---
Author Organization [facility] Address [address] [place] [address] Care Team Providers Care Labor Relations Representative Name Role Phone Unavailable Primary Care Provider Unavailabl e Encounter Details Date Type Department Care Team (Late st Contact Info) Description 11/15/2003 Results Only [facility] [address] [place] [address] Maura Purdy MD [address] [place] [phone] Social History Tobacco Use Types Packs/Day Years Used Date Smoking Tobacco: Never Assessed Sex and Gender Information Value Date Recorded Sex Assigned at Not on file Gender Identity Not on file Sexual Orientation Not on file documented as of this encounter Plan of Treatment Not on file documented as of this encounter Procedures Procedure Name Priority Date/Time Associated Diagnosis Comments CYTOPATHOLOGY Routine 11/15/2003 0:00 EDT documented in this encounter Results * CYTOPATHOLOGY (11/15/2003 0:00 EDT) Pathology Report: CYTOPATHOLOGY REPORT Reports generated via electronic interface contain original data; however they are lacking the format of the original report. Caution should be taken when reading/interpreti ng unformatted reports. Name: ? JENNIFER GARDNER ? Accession #: ? [id number] : ? 1955 (Age: 48) ??F ?Collect Date: ? 11/15/2003 Location: ? [facility] ? Receive Date: ? 11/16/2003 Provider: ? MAURA PURDY MD Copy to: ? CYTOLOGIC DIAGNOSIS: ? Urine, barbotage, cytologic evaluation: - No malignant cells identified. ??See comment. ? COMMENT: ? The specimen is paucicellular, showing few benign urothelial cells and squamous cells. (Dr. Duggan)/[facility] Document reviewed and electronically signed by: ? Caleb Duggan MD Report Date: ??11/16/2003 15:30 By the signature above, the attending physician certifies that he/she has personally conducted a gross and/or microscopic examination of the described specimens and rendered or confirmed the above diagnosis. Specimen Type: ? Urine, Barbotage Clinical History: ? No clinical information provided. ? Gross Description: ? 30cc' s of clear, pale yellow fluid (50% etoh added) were received and processed by concentration technique. ? End of Report JAYMIE MATTHWES 11/15/2003 11/16/2003 8:0 7 EDT Maura Purdy MD PATHOLOGY ORDERABLE S [facility] [address] [place] [address] documented in this encounter Visit Diagnoses Not on filedocumented in this encounter
--- OUTSIDE RECORDS SUMMARY | 2024-03-15 11:37 | XMS_ITS | Encounter Summary ---
Author Organization [facility] Address [address] [place] [address] Care Team Providers Care Agricultural Commodities Inspector Name Role Phone Regan Harper MD Primary Care Provider Un available Encounter Details Date Type Department Care Team (Latest Contact Info) Description 06/08/2015 15:15 EDT - 06/08/2015 23:59 EDT Hospital Encounter [address] [address] Unknown, Provider, Discharge Disposition: Home or Self Care Social History Tobacco Use Types Packs/Day Years Used Date Smoking Tobacco: Never Assessed Sex and Gender Information Value Date Recorded Sex Assigned at Not on file Gender Identity Not on file Sexual Orientation Not on file documented as of this encounter Discharge Disposition Disposition Code Departure Means Destination Home or Self Intermediate documented in this encounter Plan of Treatment Not on file documented as of this encounter Visit Diagnoses Not on filedocumented in this encounter Care Teams Agricultural Commodities Inspector Relationship Specialty Start Date End Date Regan Harper MD PCP - General 12/24/10 06/22/15 documented as of this encounter
--- OUTSIDE RECORDS SUMMARY | 2024-03-15 11:37 | XMS_ITS | Encounter Summary ---
Author Organization [facility] Address [address] [place] [address] Care Team Providers Care Pure Pak Machine Operator Name Role Phone Unavailable Primary Care Provider Unavailabl e Encounter Details Date Type Department Care Team (Latest Contact Info) Description 06/19/1999 13:37 EST Hospital Encounter [facility] - Other [address] [place] [address] Babatunde Hatfield MD Unknown, Provider, Discharge Disposition: Auto Discharge Social History Tobacco Use Types Packs/Day Years Used Date Smoking Tobacco: Never Assessed Sex and Gender Information Value Date Recorded Sex Assigned at Not on file Gender Identity Not on file Sexual Orientation Not on file documented as of this encounter Discharge Disposition Disposition Code Departure Means Destination Auto Discharge documented in this encounter Plan of Treatment Not on file documented as of this encounter Visit Diagnoses Not on filedocumented in this encounter
--- OUTSIDE RECORDS SUMMARY | 2024-03-15 11:37 | XMS_ITS | Encounter Summary ---
Author Organization [facility] Address [address] [place] [address] Care Team Providers Care Tomb Maker Helper Name Role Phone Regan Harper MD Primary Care Provider Un available Encounter Details Date Type Department Care Team (Late st Contact Info) Description 06/08/2015 Results Only [facility] [phone] Izzy Austin MD [address] [place] [phone] Social History Tobacco Use Types Packs/Day Years Used Date Smoking Tobacco: Never Assessed Sex and Gender Information Value Date Recorded Sex Assigned at Not on file Gender Identity Not on file Sexual Orientation Not on file documented as of this encounter Plan of Treatment Not on file documented as of this encounter Procedures Procedure Name Priority Date/Time Associated Diagnosis Comments SURGICAL PATHOLOGY Routine 06/08/2015 17 :22 EDT documented in this encounter Results * SURGICAL PATHOLOGY (06/08/2015 17:22 EDT) Pathology Report: SURGICAL PATHOLOGY REPORT Reports generated via electronic interface contain original data; however they are lacking the format of the original report. Caution should be taken when reading/interpret ing unformatted reports. Name: ? JENNIFER GARDNER ? Accession #: ? [id number] ? : ? 1955 (Age: 60) ??F ? Collect Date: ? 06/08/2015 ? Location: ? [facility] ? Receive Date: ? 06/09/2015 ? Provider: IZZY AUSTIN MD Copy to: ? 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 - Lesion extends to peripheral edge and base of biopsy specimen. ?? Document reviewed and electronically signed by: EDITH CASTANEDA MD Report ??Date: 06/12/2015 15:47 By the signature above, the attending physician certifies that he/she has personally conducted a gross and/or microscopic examination of the described specimens and rendered or confirmed the above diagnosis. Specimen(s) Received: Shave bx ant chest wall Clinical History: Enlarging papule of uncertain behavior; eval for BCC Gross Description: ? Received in formalin labelled with proper patient identification (initials D, D) and chest is a shave biopsy of walters skin received fragmented into three pieces (0.5 x 0.3 x 0.1 cm to 0.7 x 0.4 x less than 0.1 cm). There is an eccentrically located brown mottled papule on the smaller piece of tissue that measures 0.4 x 0.3 x less than 0.1 cm. The specimens are entirely submitted intact in 1. Dr. Ornelas 06/10/2015 8:16 AM End of Report [facility] 06/08/2015 17:2 2 EDT 06/09/2015 17:22 EDT Izzy Austin MD PATHOLOGY ORDERABLES [facility] [address] [place] [address] documented in this encounter Visit Diagnoses Not on filedocumented in this encounter Care Teams Tomb Maker Helper Relationship Specialty Start Date End Date Regan Harper MD PCP - General 12/24/10 06/22/15 documented as of this encounter
--- OUTSIDE RECORDS SUMMARY | 2024-03-15 11:37 | XMS_ITS | Encounter Summary ---
Author Organization [facility] Address [address] [place] [address] Care Team Providers Care Glue Maker Name Role Phone Izzy Mars MD Primary Care Provider Reason for Visit * Reason Comments Follow-up Encounter Details Date Type Department Care Team (Latest Contact Info) Description 07/11/2015 8:30 EST Office Visit [facility] Pelvic Medicine and Reconstructive Surgery - Medical Office Building [address] [address] Shaista Orr MD [facility] Medical Office [facility], [address] [phone] Dysuria (Primary Dx) Discharge Disposition: [...] Body Mass Index 31.95 07/11/2015 0833 EST documented in this encounter Discharge Diagnoses Diagnosis R30.0 Dysuria-R30.0[ICD-10-CM] documented in this encounter Discharge Disposition Disposition Code Departure Means Destination Auto Discharge documented in this encounter Progress Notes * Shaista Orr MD - 07/11/2015 0836 EST [facility] FOLLOW-UP Patient: Shaista Newman is an 60 y.o. female seen for a follow-up regarding acute cystitis. Was started on Cipro(had taken previously). UTI was resistant to Cipro, was changed to Macrobid with good results. Pt without UTI symptoms. Here for test of cure. No current outpatient prescriptions on file. No current facility-administered medications for this visit. Not on File History Social History ??? Marital Status: Spouse [...] History Narrative ??? No narrative on file Review of Systems Pelvic pain: No Dyspareunia: No Recurrent UTI: No Hematuria: No Objective BP 132/72 mmHg Pulse 74 Ht 154.9 cm (60.98) Wt 76.658 kg (169 lb) BMI 31.95 kg/m2 Physical Exam Deferred UA: Negative Assessment and Plan Shaista Newman is a 60 y.o. female with recurrent UTI, resolved.. F/U prn. Shaista Orr MD documented in this encounter Plan of Treatment Not on file documented as of this encounter Procedures Procedure Name Priority Date/Time Associated Diagnosis Comments POCT URINE DIPSTICK, CLINITEK Routine 07/11/2015 8:41 EST Dysuria documented in this encounter Results * POCT URINE DIPSTICK (07/11/2015 8:41 EST) Color YELLOW 07/11/2015 8:45 EST [facility] Clarity, UA Clear 07/11/2015 8:45 EST [facility] Glucose Neg Neg 07/11/2015 8:45 EST [facility] Bilirubin Neg Neg 07/11/2015 8:45 [facility] Ketones Neg Neg 07/11/2015 8:45 [facility] Specific [place] <=1.005 1.001 - 1.035 07/11/2015 8:45 [facility] Blood Neg Neg 07/11/2015 8:45 [facility] pH 6.5 4.6 - 8.0 07/11/2015 8:45 [facility] Protein Neg Neg 07/11/2015 8:45 [facility] Urobilinogen 0.2 0.2 - 1.0 E.U./dl 07/11/2015 8:45 [facility] Nitrite Neg Neg 07/11/2015 8:45 [facility] Leuk Esterase Neg Neg 07/11/2015 8:45 [facility] pouch making machine operator ID [id number] 07/11/2015 8:45 [facility] Comment:Test performed at [facility] [place] Urine specimen (specimen) URINE / Unknown 07/11/2015 8:41 EST 07/11/2015 8:45 EST Shaista Orr MD POINT OF CARE TE ST ORDERABLES Performing Organization Address City/State/[place] de Phone Number [facility] [address] [place] [address] documented in this encounter Visit Diagnoses Diagnosis Dysuria- Primary documented in this encounter Additional Health Concerns Infection Onset Date Last Indicated Resolved Time MDR-GNR Comment:IP Note: 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
--- OUTSIDE RECORDS SUMMARY | 2024-03-15 11:37 | XMS_ITS | Encounter Summary ---
Author Organization [facility] Address [address] [place] [address] Care Team Providers Care Gear And Spline Grinder Name Role Phone Unavailable Primary Care Provider Unavailabl e Encounter Details Date Type Department Care Team (Late st Contact Info) Description 04/23/2002 13:09 EDT Hospital Encounter [facility] - Other [address] [place] [address] Damon Buck MD Unknown, Provider, Social History Tobacco Use Types [...] Priority Date/Time Associated Diagnosis Comments CYTOPATHOLOGY Routine 04/23/2002 0:00 EDT documented in this encounter Results * CYTOPATHOLOGY (04/23/2002 0:00 EDT) Pathology Report: CYTOPATHOLOGY REPORT Reports generated via electronic interface contain original data; however they are lacking the format of the original report. Caution should be taken when reading/interpreti ng unformatted reports. Name: ? JENNIFER GARDNER ? Accession #: ? [id number] : ? 1955 (Age: 47) ??F ?Collect Date: ? 04/23/2002 Location: ? [facility] ? Receive Date: ? 04/27/2002 Provider: ?DAMON BUCK MD Copy to: ? Specimen/Source: ?ThinPrep Pap Test, Cervix/Endocervix Last Menstrual Period: ? SPECIMEN ADEQUACY ? Satisfactory for Evaluation - transformation zone component absent GENERAL CATEGORIZATION ? Negative for Intraepithelial Lesion or Malignancy ? Document reviewed and electronically signed by: ? JENNA Cueto(ASCP) ? 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
--- OUTSIDE RECORDS SUMMARY | 2024-03-15 11:37 | XMS_ITS | Encounter Summary ---
Author Organization [facility] Address [address] [place] [address] Care Team Providers Care Field Pipelines Supervisor Name Role Phone Izzy Mars MD Primary Care Provider [phone] Encounter Details Date Type Department Care Team (Late st Contact Info) Description 06/26/2015 Orders Only [facility] Pelvic Medicine and Reconstructive Surgery - Medical Office [facility] [address] [place] [address] Rianna Vaz RN Dysuria (Primary Dx) Social History Tobacco Use Types Packs/Day Years Used Date Smoking Tobacco: Former Sex and Gender Information Value Date Recorded Sex Assigned at Not on file Gender Identity Not on file Sexual Orientation Not on file documented as of this encounter Plan of Treatment Not on file documented as of this encounter Procedures Procedure Name Priority Date/Time Associated Diagnosis Comments BACTERIAL CULTURE, URINE Routine 06/26/2015 16:35 EST Dysuria documented in this encounter Results * BACTERIAL CULTURE, URINE (06/26/2015 16:35 EST) Result Greater than 100,000 CFU/ml ESCHERICHIA COLI 06/29/2015 9:26 EST [facility] Result Less than 10,000 CFU/ml Usual urogenital dahiana. 06/29/2015 9:26 EST [facility] Urine specimen (specimen) URINE / Unknown 06/26/2015 16:35 EST 06/26/2015 18:42 EST Narrative Organism Antibiotic Method Susceptibility Greater than 100,000 cfu/ml escherichia coli Ampicillin SUSCEPTIBILITY (ADEN) >=32: Resistant Greater than 100,000 cfu/ml escherichia coli Gentamicin SUSCEPTIBILITY (ADEN) >=16: Resistant Greater than 100,000 cfu/ml escherichia coli Trimethoprim-Sulfameth oxazole SUSCEPTIBILITY (ADEN) >=320: Resistant Greater than 100,000 cfu/ml escherichia coli Nitrofurantoin SUSCEPTIBILITY (ADEN) <=16: Susceptible Greater than 100,000 cfu/ml escherichia coli Tobramycin SUSCEPTIBILITY (ADEN) 8: Intermediate Greater than 100,000 cfu/ml escherichia coli Amikacin SUSCEPTIBILITY (ADEN) <=2: Susceptible Greater than 100,000 cfu/ml escherichia coli Ceftriaxone SUSCEPTIBILITY (ADEN) >=64: Resistant Greater than 100,000 cfu/ml escherichia coli Ciprofloxacin SUSCEPTIBILITY (ADEN) >=4: Resistant Greater than 100,000 cfu/ml escherichia coli Piperacillin Tazobactam SUSCEPTIBILITY (ADEN) <=4: Susceptible Greater than 100,000 cfu/ml escherichia coli Meropenem SUSCEPTIBILITY (ADEN) <=0.25: Susceptible Greater than 100,000 cfu/ml escherichia coli Ertapenem SUSCEPTIBILITY (ADEN) <=0.5: Susceptible Greater than 100,000 cfu/ml escherichia coli Cefpodoxime ETEST Resistant Shaista Orr MD MICROBIOLOGY - G ENERAL ORDERABLES [facility] [address] [place] [address] documented in this encounter Visit Diagnoses Diagnosis Dysuria- Primary documented in this encounter Care Teams Field Pipelines Supervisor Relationship Specialty Start Date End Date Izzy Mars MD [address] [place] [phone] PCP - General 06/23/15 documented as of this encounter
--- OUTSIDE RECORDS SUMMARY | 2024-03-15 11:37 | XMS_ITS | Encounter Summary ---
Author Organization [facility] Address [address] [place] [address] Care Team Providers Care Projection Welding Machine Operator Name Role Phone Unavailable Primary Care Provider Unavailabl e Encounter Details Date Type Department Care Team (Late st Contact Info) Description 12/19/2010 Results Only [facility] - [facility] ([facility]) [address], [place] [id number] Kiera Maurice MD [address] [place] [address] [address] [place] [phone] Social History Tobacco Use Types Packs/Day Years Used Date Smoking Tobacco: Never Assessed Sex and Gender Information Value Date Recorded Sex Assigned at Not on file Gender Identity Not on file Sexual Orientation Not on file documented as of this encounter Plan of Treatment Not on file documented as of this encounter Procedures Procedure Name Priority Date/Time Associated Diagnosis Comments SURGICAL PATHOLOGY Routine 12/19/2010 0:00 EDT documented in this encounter Results * SURGICAL PATHOLOGY (12/19/2010 0:00 EDT) Pathology Report: SURGICAL PATHOLOGY REPORT ? Reports generated via electronic interface contain original data; ? however they are lacking the format of the original report. ? Caution should be taken when reading/interpreti ng unformatted reports. ? Name: ? JJ, JENNIFER ? Accession #: ? [id number] ? : ? 1955 (Age: 55) ??F ? Collect Date: ? 12/19/2010 ? Location: ? [facility] ? Receive Date: ? 12/20/2010 ? Provider: KIERA Knight AMBER MD ? Copy to: SAROJ VELÁSQUEZH MD ? Final Pathologic Diagnosis: ? A. ?Ileum, biopsies: ? 1. ?Ileal mucosa with no specific pathologic features. ??See comment. ? B. ?Colon, right, biopsies: ? 1. ?Colonic mucosa with no specific pathologic features. ? C. ?Colon, left, biopsies: ? 1. ?Colonic mucosa with no specific pathologic features. ? D. ?Rectum, biopsies: ? 1. ?Rectal-type mucosa with no specific pathologic features. ? Comment: ? The current biopsy series is unremarkable, without significant active ? inflammation or evidence of chronicity. ??The features of microscopic/collag enous colitis are not seen. ??No granulomas are identified. ??(Dr. Hartman)/shefalin ? Document reviewed and electronically signed by: ? BILL HARTMAN MD ? Report ??Date: 12/24/2010 12:13 ? By the signature above, the attending physician certifies that he/she has ? personally conducted a gross and/or microscopic examination of the described ? specimens and rendered or confirmed the above diagnosis. ? Specimen(s) Received: ? A. ?Ileum ? B. ? R colon ? C. ? L colon ? D. ? Rectum ? Clinical History: ? Abd pain, diarrhea, bleeding ? Gross Description: ? Received in formalin labelled Dernavich, Jennifer and ileum are three ? light walters-white, soft pieces of tissue which measure 0.5 x 0.2 x 0.1 cm, 0.4 x ?? 0.2 x 0.1 cm, and 0.4 x 0.3 x 0.2 cm which are submitted intact as (A). ? Received in formalin labelled Dernavich, Jennifer and R colon are five ? white-light walters, soft pieces of tissue which range from 1.0 x 0.1 x 0.1 cm to ?? 0.4 x 0.3 x 0.1 cm with three submitted as (B1) and the remaining two as (B2). ? Received in formalin labelled Carmenh, Jennifer and L colon are five light ?? walters-white, soft pieces of tissue which range from 0.7 x 0.2 x 0.1 cm to 0.4 x ?? 0.2 x 0.1 cm with three submitted as (C1) and the remaining two as (C2). ? Received in formalin labelled Dernapatih, Jennifer and rectum are two white, ? focally dark walters, firm pieces of tissue which measure 0.5 x 0.3 x 0.2 cm and 0.4 x 0.3 x 0.2 cm which are submitted intact as (D). ??(Marcelino Mohamud/[facility] ? End of Report ? [facility] 12/19/2010 12/20/2010 9:3 3 EDT Kiera Maurice MD PATHOLOGY ORDERABL ES [facility] [address] [place] [address] documented in this encounter Visit Diagnoses Not on filedocumented in this encounter
[2024-03-15 17:32] LABS: ALT 29 U/L (14-59); AST 21 U/L (15-37); Albumin 3.9 g/dL (3.4-5.0); Alkaline Phosphatase 108 U/L (46-116); Anion Gap 8.7 mmol/L (3-11); BUN 28 mg/dL (7-18); Bilirubin, Total 0.55 mg/dL (0.2-1.0); CO2 27.3 mmol/L (21.0-32.0); Calculated LDL 70 mg/dL (<100); Chloride 106 mmol/L (98-107); Cholesterol 153 mg/dL (<200); Estimated GFR 61.36 (mL/min/1.73m2); Glucose 117 mg/dL (74-106); HDL Cholesterol 68 mg/dL (40-60); Potassium 3.7 mmol/L (3.5-5.1); Sodium 142 mmol/L (136-145); Total Protein 7.2 g/dL (6.4-8.2); Triglyceride 77 mg/dL (<150)
[2024-03-15 18:52] LABS: Calcium 9.2 mg/dL (8.5-10.1)
[2024-03-16 18:19] LABS: Hemoglobin A1C 5.9 % (<5.7)
== END 2024-03-15 11:28 | disposition home or self-care (01) ==
LOC: NCHCN 11:27
PROVIDERS: PCP Nurse Practitioner Family; Visit Provider Family Medicine
DX: E78.5 Hyperlipidemia, unspecified (principal); I10 Essential (primary) hypertension; R73.03 Prediabetes
CPT/HCPCS: 80053; 80061; 83036

== ENCOUNTER 2025-03-14 16:09 | Outpatient (REF) | payer MEDICARE, SELFPAY ==
[2025-03-14 16:58] LABS: Calculated LDL 64 mg/dL (<100); Cholesterol 145 mg/dL (<200); HDL Cholesterol 70 mg/dL (>or=50); Triglyceride 56 mg/dL (<150)
== END 2025-03-14 16:10 | disposition home or self-care (01) ==
LOC: NCHCN 16:09
PROVIDERS: PCP Nurse Practitioner Family; Visit Provider Family Medicine
DX: E78.5 Hyperlipidemia, unspecified (principal)
CPT/HCPCS: 80061